=== PATIENT | female | born 1990 | race Caucasian/White ===

== ENCOUNTER 2021-07-27 01:55 | Emergency (ER) | payer SELFPAY ==
[2021-07-27 02:15] VITALS: BP 120/75; PULSE 69; TEMP 98; BMI 33.9
[2021-07-27] MEDS ORDERED: KETOROLAC TROMETHAMINE 30 MG/1 ML VIAL IM ONE (02:35)
[2021-07-27] MEDS ORDERED: DEXAMETHASONE SOD PHOSPHATE 10 MG/1 ML VIAL IVPUSH ONE (02:35)
[2021-07-27] MEDS ORDERED: ACETAMINOPHEN 325 MG TABLET (FP) PO ONE (02:35)
[2021-07-27] MEDS ORDERED: DEXAMETHASONE SOD PHOSPHATE 10 MG/1 ML VIAL ONE (02:45)
[2021-07-27] MEDS ORDERED: KETOROLAC TROMETHAMINE 30 MG/1 ML VIAL ONE (02:46)
[2021-07-27] MEDS ORDERED: ACETAMINOPHEN 325 MG TABLET (FP) ONE (02:46)
[2021-07-27 03:46] LABS: BASO % 0.5 % (0-2.0); EOS % 3.1 % (0-4.5); HEMATOCRIT 36.5 % (32.4-45.2); HEMOGLOBIN 11.7 GM/dL (10.7-15.3); LYMPH % 38.8 % (8-40); MCH 23.9 pg (25.7-33.7); MCHC 32.1 g/dl (32.0-36.0); MEAN CELL VOLUME 74.5 fl (80-96); MEAN PLT VOLUME 8.6 fl (7.5-11.1); MONO % 9.2 % (3.8-10.2); NEUT % 48.4 % (42.8-82.8); PLATELET COUNT 291 10^3/uL (134-434); RDW 17.7 % (11.6-15.6); WHITE BLOOD COUNT 6.1 K/mm3 (4.0-10.0)
[2021-07-27 04:03] LABS: CHLORIDE 108 mmol/L (98-107); SODIUM 142 mmol/L (136-145)
[2021-07-27 04:05] LABS: CALCIUM 9.3 mg/dL (8.5-10.1)
[2021-07-27 04:06] LABS: ALBUMIN 3.9 g/dl (3.4-5.0); ANION GAP 6 MMOL/L (8-16); BLOOD UREA NITROGEN 10.7 mg/dL (7-18); CO2 28 mmol/L (21-32); GLUCOSE,RANDOM 96 mg/dL (74-106)
[2021-07-27 04:09] LABS: CREATININE 0.7 mg/dL (0.55-1.3); SGOT/AST 17 U/L (15-37); SGPT/ALT 20 U/L (13-61)
[2021-07-27 04:11] LABS: BILIRUBIN,TOTAL 0.8 mg/dL (0.2-1)
[2021-07-27 04:12] LABS: ALK PHOS 74 U/L (45-117)
[2021-07-27 04:29] LABS: ERYTHROCYTE SEDIMENTATION RATE 17 mm/hr (0-20)
[2021-07-29 14:11] LABS: BABESIA MICROTI ANTIBODY IGG <1:10 (Neg:<1:10); BABESIA MICROTI ANTIBODY IGM <1:10 (Neg:<1:10)
== END 2021-07-27 05:13 | disposition home or self-care (01) ==
LOC: JER 01:55
PROC: 3E033GC Introduction of Other Therapeutic Substance into Peripheral Vein, Percutaneous Approach (ICD-10-PCS; principal; 2021-07-27)
DX: M25.512 Pain in left shoulder (principal)
CPT/HCPCS: 36415; 73030-TC-LT-FY; 80053; 82550; 82553; 84703; 85025; 85651; 86038; 86140; 86431; 86618; 86753; 99284-25; J1100

== ENCOUNTER 2022-01-19 20:35 | Emergency (ER) | payer SELFPAY ==
[2022-01-19 20:41] VITALS: BP 116/67; PULSE 75; RESP 18; TEMP 98.1; BMI 35.2
[2022-01-19] MEDS ORDERED: BACITRACIN 15 GM TUBE TOPICAL OINTMENT TP ONE (23:37)
[2022-01-19] MEDS ORDERED: BACITRACIN 15 GM TUBE TOPICAL OINTMENT ONE (23:40)
== END 2022-01-19 23:52 | disposition home or self-care (01) ==
LOC: JERFT 20:35 → JER 20:35
DX: S61.301A Unspecified open wound of left index finger with damage to nail, initial encounter (principal); W23.0XXA Caught, crushed, jammed, or pinched between moving objects, initial encounter
CPT/HCPCS: 99281-25